=== PATIENT | female | born 1950 | race Caucasian/White ===

== ENCOUNTER 2018-04-01 15:12 | Emergency (ER) | payer SELFPAY ==
[~2018-04-01] VITALS: Ht 170.2 cm; Wt 54.0 kg
[2018-04-01 16:26] VITALS: BP 105/68
== END 2018-04-01 16:59 | disposition home or self-care (01) ==
LOC: ER 15:14
DX: K08.89 Other specified disorders of teeth and supporting structures (principal); F17.200 Nicotine dependence, unspecified, uncomplicated; E11.9 Type 2 diabetes mellitus without complications; E03.9 Hypothyroidism, unspecified; Z88.0 Allergy status to penicillin; Z59.0 Homelessness
CPT/HCPCS: A4606; Z7610